=== PATIENT | male | born 1955 | race Caucasian/White ===

== ENCOUNTER 2023-03-31 02:04 | Emergency (ER) | payer MEDICARE, OTHER ==
[2023-03-31 03:10] LABS: INFLUENZA A NAA NEGATIVE (NEGATIVE); INFLUENZA B NAA NEGATIVE (NEGATIVE)
[2023-03-31 03:11] LABS: CORONAVIRUS COVID-19 NAA NEGATIVE (NEGATIVE)
[2023-03-31 03:51] LABS: RESPIRATORY SYNCYTIAL VIR NAA NEGATIVE (NEGATIVE)
[2023-03-31] MEDS ORDERED: predniSONE 20 MG Tab PO ONE (03:51)
[2023-03-31] MEDS ORDERED: Albuterol/Ipratropium 3.0-0.5 MG/3 ML Neb Soln NEB ONE (03:52)
[2023-03-31] MEDS ORDERED: Diazepam 5 MG Tab PO ONE (04:52)
== END 2023-03-31 05:23 | disposition home or self-care (01) ==
LOC: FB.ED 02:04
DX: J06.9 Acute upper respiratory infection, unspecified (principal); K29.20 Alcoholic gastritis without bleeding; J44.9 Chronic obstructive pulmonary disease, unspecified; Z20.822 Contact with and (suspected) exposure to COVID-19
CPT/HCPCS: 0241U; 71045; 87651-QW; 99284; 99285; A9270-GY; J7512; J7620

== ENCOUNTER 2023-10-26 06:09 | Day surgery (SDC) | payer MEDICARE ==
[2023-10-26] MEDS ORDERED: fentaNYL 100 MCG/2 ML SDV IV ONE (06:10)
[2023-10-26] MEDS ORDERED: Midazolam 1 MG/ML 2 ML SDV IV ONE (06:10)
[2023-10-26] MEDS ORDERED: Sodium Chloride 0.9% 10 ML Syringe FLUSH PRN (06:15)
[2023-10-26] MEDS: Lactated Ringers 1,000 ML IV SCH (07:32)
[2023-10-26] MEDS: ceFAZolin 1 GM Vial IVPUSH ONE (07:34)
[2023-10-26] MEDS: Lidocaine 1% with EPINEPHrine 1:100,000 20 ML MDV INJECT ONE (08:06)
[2023-10-26] MEDS: Bupivacaine 0.5% 30 ML SDV INJECT ONE (08:06)
== END 2023-10-26 09:38 | disposition home or self-care (01) ==
LOC: FB.SDS 06:09
PROVIDERS: ATTEND Surgery
DX: C44.91 Basal cell carcinoma of skin, unspecified (principal); K40.90 Unilateral inguinal hernia, without obstruction or gangrene, not specified as recurrent; I10 Essential (primary) hypertension; F17.210 Nicotine dependence, cigarettes, uncomplicated
CPT/HCPCS: 00300; 14040; 88305; J0665; J0690; J2250; J3010; J7120